=== PATIENT | male | born 1975 | race Two or more races ===

== ENCOUNTER → 2022-12-20 14:34 | Outpatient (REF) | payer BC, SELFPAY ==
--- NOTE | 2022-12-20 14:54 | CA_ITS ---
Transthoracic Echocardiogram Patient (Last, First, Middle): Jesus Esposito, Gender: Male Date of : 1975 Age: 47 Procedure Date: 12/20/2022 Procedure Type: Transthoracic Echocardiogram Location: OP Height: 182.88 cm Weight: 81.65 kg BSA: 2.04 m2 Heart Rate: bpm BP: 128 / 96 mmHg Chronometer Assembler: JERRICA Referring MD: Margarito Ramsey MD Symptoms: I49.9 - Cardiac arrhythmia, unspecified Study Quality: Adequate ECG Rhythm: Sinus in some areas; artifact; PVCs Conclusions: - The left ventricular systolic function is normal. The calculated ejection fraction is 64% by biplane method. - No obvious valvular pathology seen on this study. Findings Left Ventricle Normal left ventricular cavity size. There is normal left ventricular wall thickness. The left ventricular systolic function is normal. The calculated ejection fraction is 64% by biplane method. There is no evidence of regional wall motion abnormalities. Diastolic function is normal for age. LV peak GLS -19.9%. Right Ventricle Normal right ventricular cavity size and systolic function. Atria Both atria are normal in size. Aortic Valve There is a normal trileaflet aortic valve. There is no aortic valve stenosis. There is no aortic valve regurgitation. Mitral Valve The mitral valve appears normal. There is no mitral valve regurgitation. There is no mitral valve stenosis. Pulmonic Valve The pulmonic valve is likely normal. Tricuspid Valve Normal tricuspid valve structure. There is trace tricuspid valve regurgitation. There is no evidence of pulmonary hypertension. Great Vessels The sinuses of valsalva and sino tubular ridge are normal in size. Venous The inferior vena cava is normal in size and collapses less than 50% with inspiration. Pericardium/Pleural There is no evidence of pericardial effusion. Prior Study Comparison No prior study available for comparison. Recommendations, Care & Conclusions No obvious valvular pathology seen on this study. Measurements 2D Linear Measurements IVSd: 0.96 0.6-0.9/0.6-1.0 cm LVIDd: 4.96 3.9-5.3/4.2-5.9 cm LVIDd Index: 2.43 2.4-3.2/2.2-3.1 cm/m2 LVIDs: 2.58 2.0-3.6 cm LVPWd: 0.93 0.7-1.1 cm LA Diam: 3.00 2.7-3.8/3.0-4.0 cm LAIDs Index: 1.47 1.5-2.3 cm/m2 LV Mass: 207.96 67-162/88-224 g LV Mass Index: 101.94 43-95/49-115 g/m2 LVOT Diam: 2.10 3.0+(-)1.3 cm 2D Systolic Function EF 4C: 56.40 >55% EF 2C: 69.60 >55% EF BiP: 63.90 >55% Mitral Valve MV Pk E: 0.92 MV PK A: 0.63 MV Decel Time: 254.00 E/A: 1.40 E'Lateral: 12.20 E'Medial: 8.03 E/E' Med: 11.40 E/E' Lat: 7.50 PHT: 74.00 MVA PHT: 2.97 Decel Bracken: 3.64 Aortic Valve AoV Pk Nick: 1.24 AoV Mn Nick: 0.88 AoV VTI: 0.30 AoV Pk Grad: 6.00 Aov Mn Grad: 3.00 SLAVA Cont.VTI: 2.47 LVOT LVOT Pk Nick: 1.09 LVOT Mn Nick: 0.70 LVOT VTI: 0.21 LVOT Pk Grad: 5.00 LVOT Mn Grad: 2.00 LVOT Diam: 2.10 LVOT Area: 3.46 Diastolic Function MV Pk E: 0.92 MV Pk A: 0.63 E/A: 1.40 E'Medial: 8.03 E/E' Med: 11.40 E' Laterial: 12.20 E/E' Lat: 7.50 Right Ventricle TAPSE (mm): 19.50 TVS' Nick: 11.70 Tricuspid Valve TR Pk Nick: 2.21 TR Pk Grad: 20.00 RA Press: 3.00 RVSP: 23.00 Great Vessels Aorta Sinus of Valsalva: 3.71 2.0-3.[address] Ridge: 2.13 1.7-3.4 cm Ao Asc: 2.90 2.1-3.4 cm Updated in Other Vendor System with Status of Final Agustin Haley MD electronically signed on 12/21/2022 10:56:53 AM with status of Final
== END ==
LOC: HO.CARD 14:34
PROVIDERS: Visit Provider Internal Medicine Cardiovascular Disease
DX: I49.9 Cardiac arrhythmia, unspecified (principal); I49.3 Ventricular premature depolarization
CPT/HCPCS: 93242; 93306; 93356

== ENCOUNTER → 2022-12-20 14:54 | Outpatient (BNV) | payer BC, SELFPAY | PROVIDERS: Visit Provider Internal Medicine | DX: I47.10 Supraventricular tachycardia, unspecified (principal) | CPT/HCPCS: 93244; 93306 ==